=== PATIENT | male | born 1980 | race American Indian/Alaskan Native ===

== ENCOUNTER 2016-05-21 08:04 | Emergency (ER) | payer MEDICARE ==
[2016-05-21 12:14] VITALS: BP 142/91
[2016-05-21 12:31] LABS: Bacteria,Urine 1+ /HPF (Negative); Bilirubin,Urine NEG (Negative); Blood,Urine SM (Negative); Ketones,Urine NEG (Negative); Leukocyte Esterase,Urine NEG (Negative); Mucus,Urine FEW /HPF; Nitrite,Urine NEG (Negative); Urobilinogen,Urine < 2.0 mg/dL (<2.0)
[2016-05-21 12:34] LABS: Basophils % (Auto) 0.4 % (0.0-1.8); Hematocrit 39.9 % (35.5-45.6); Hemoglobin 13.3 gm/dl (11.8-15.2); Mean Corpuscular HGB Conc 34 % (32-34); Mean Corpuscular Hemoglobin 28 pg (28-32); Mean Corpuscular Volume 85 fl (84-94); Platelet Count 296 K/mm3 (140-440); Red Blood Count 4.71 M/mm3 (3.65-5.03); White Blood Count 5.5 K/mm3 (4.5-11.0)
[2016-05-21] MEDS ORDERED: NORCO 7.5/325 ONE (12:36)
[2016-05-21] MEDS ORDERED: NORCO 7.5/325 PO ONE (12:38)
[2016-05-21 12:58] LABS: Anion Gap 18 mmol/L; Blood Urea Nitrogen 9 mg/dL (9-20); Calcium 9.2 mg/dL (8.4-10.2); Carbon Dioxide 25 mmol/L (22-30); Chloride 100.7 mmol/L (98-107); Creatine Kinase 92 units/L (55-170); Glucose 103 mg/dL (75-100); Potassium 3.9 mmol/L (3.6-5.0); Sodium 140 mmol/L (137-145)
--- NOTE | 2016-05-21 14:38 | XRay Report ---
LEFT FOOT, 2 views: History: Left foot pain and swelling. The bony architecture is intact. Bony alignment is normal. No soft tissue abnormalities are seen. The joint spaces appear preserved. IMPRESSION: Unremarkable left foot.
--- NOTE | 2016-05-21 15:13 | Emergency Department Report ---
Entered by BLANCHE TALBOT, acting as scribe for BENITA CARL PA. ED Extremity Problem HPI - General Chief complaint: Extremity Problem,Nontraumatic Stated complaint: LEFT FOOT PAIN Time Seen by Provider: 05/21/16 12:00 Source: patient Mode of arrival: Wheelchair Limitations: No Limitations - History of Present Illness Initial comments: 36 y/o male with PMHx of recurrent rhabdomyolysis and HTN, presents to the ED c/ o left dorsal foot pain beginning 2 days ago. He states he woke up 2 days ago with the symptoms, and the symptoms worsened after waking up yesterday morning. The left foot pain is described as constant, deep, and throbbing in quality, 9/ 10 severity, and worse in the morning. Associated symptoms of mild swelling of the left foot and dark urine, but the patient denies body aches (that are similar to Hx of rhabdomyolysis symptoms), fever, nausea, vomiting, SOB, chest pain, hematuria, abdominal pain, numbness, headache, and weakness. Patient denies acute trauma, injury, or twisting of the extremity. Noted the patient forgot to take his HTN medication (metoprolol) this morning. MD Complaint: extremity pain (left dorsal foot) -: days(s) (2 days ago, became worse yesterday morning) Location: left (dorsal foot) History of Same: No -: No myalgia, No arthralgia, No fever, No associated dyspnea, No associated chest pain Radiation: none Severity scale (0 -10): 9 Quality: constant, other (throbbing and deep) Consistency: constant Improves with: nothing Worsens with: weight bearing, palpation, other (movement) Associated Symptoms: other (mild swelling of the left foot, mildly dark urine, but denies body aches that are consistent with his rhabdomyolysis). denies: chest pain, shortness of breath, fever, myalgias, arthralgias, rash - Related Data Home Medications Medication Instructions Recorded Confirmed Last Taken oxyCODONE ER (NF) [OxyCONTIN ER 40 mg PO Q12HR 10/24/14 10/24/14 10/23/14 TAB] Previous Rx's Medication Instructions Recorded Last Taken Type Famotidine [Pepcid] 20 mg PO BID #60 tablet 11/04/14 Unknown Rx Lisinopril [Zestril TAB] 10 mg PO QDAY #30 tablet 11/04/14 Unknown Rx oxyCODONE ER [OxyCONTIN ER TAB] 40 mg PO Q12HR #10 tablet 11/04/14 Unknown Rx Ibuprofen [Motrin 800 MG tab] 800 mg PO Q8HR PRN #30 tablet 05/21/16 Unknown Rx Allergies Allergy/AdvReac Type Severity Reaction Status Date / Time No Known Allergies Allergy Verified 10/25/14 00:39 ED Review of Systems Comment: All other systems reviewed and negative Constitutional: denies: chills, fever, other (body aches consistent with rhabdomyolysis) Respiratory: denies: cough, shortness of breath Cardiovascular: denies: chest pain Gastrointestinal: denies: abdominal pain, nausea, vomiting Genitourinary: other (dark colored urine) Musculoskeletal: other (left dorsal foot pain) Skin: other (mild swelling of the left foot). denies: rash Neurological: denies: headache, weakness, numbness ED Past Medical Hx - Past Medical History Hx Hypertension: Yes Additional medical history: Recurrent rhabdomyolysis. Cocaine abuse - Surgical History Additional Surgical History: muscle biopsy - Social History Smoking Status: Current Every Day Smoker Substance Use Type: Alcohol, Marijuana - Medications Home Medications: Home Medications Medication Instructions Recorded Confirmed Last Taken Type oxyCODONE ER (NF) [OxyCONTIN ER 40 mg PO Q12HR 10/24/14 10/24/14 10/23/14 History TAB] Famotidine [Pepcid] 20 mg PO BID #60 tablet 11/04/14 Unknown Rx Lisinopril [Zestril TAB] 10 mg PO QDAY #30 tablet 11/04/14 Unknown Rx oxyCODONE ER [OxyCONTIN ER TAB] 40 mg PO Q12HR #10 tablet 11/04/14 Unknown Rx Ibuprofen [Motrin 800 MG tab] 800 mg PO Q8HR PRN #30 tablet 05/21/16 Unknown Rx ED Physical Exam - General Limitations: No Limitations - Other Other exam information: GENERAL: Patient is alert and oriented x 3. No apparent distress, normal gait, atraumatic. HEAD: Head is normocephalic and atraumatic. EYES: Extraocular movements are intact. Pupils are equal, round, and reactive to light and accommodation. EARS: Symmetrical, atraumatic, non tender, ear canal clear with moderate cerumen , tympanic membrane non inflamed. Gross auditory nml bilaterally. NOSE: Nose symmetrical, nontender. Nares appeared normal. MOUTH:Mouth is well hydrated and without lesions. Mucous membranes are moist. Uvula midline. Tongue not elevated. Posterior pharynx clear, no exudate or lesions. Tonsils are not erythematous or swollen. Patent airway. NECK: Supple. Non edematous, no carotid bruits. No lymphadenopathy or thyromegaly. LUNGS: Symmetrical with respiration. No wheezing, rales or crackles, CTAB. HEART: Regular rate and rhythm with normal S1/S2 present. No murmurs, rubs, or gallops. ABDOMEN: Soft, nondistended. Nontender to palpation on all quadrants. No organomegaly was noted. Positive bowel sounds. No CVA tenderness. EXTREMITIES/MUSCULOSKELETAL: No cyanosis, clubbing, rash, or lesions. Full ROM bilaterally. UE/LE Pulses 2+ bilaterally. LE and UE 5+ strength bilaterally. Tender over the dorsal left foot, with some mild swelling of the left foot just distal of the left ankle (more over the dorsal side) SKIN: Warm and dry. No lesions, ulceration or induration present. No change in temperature over the left foot. NEUROLOGIC: No focal deficit., ED Course Vital Signs 05/21/16 05/21/16 08:34 11:50 Temperature 99.2 F 98.1 F Pulse Rate 95 H 92 H Respiratory 20 18 Rate Blood Pressure 154/108 Blood Pressure 142/91 [Right] O2 Sat by Pulse 99 98 Oximetry ED Medical Decision Making - Lab Data Result diagrams: 05/21/16 12:25 05/21/16 12:25 - Radiology Data Radiology results: report reviewed, image reviewed interpreted by me: Dorsum bone spur unremarkable exam - Medical Decision Making Patient was evaluated by the provider in fast track. 36 y/o male with Hx of recurrent rhabdomyolysis and HTN, presents to the ED c/o dorsal left foot pain beginning 2 days ago. Patient denies any acute trauma, injury, or twisting of the affected extremity. The patient's left foot x-ray shows Discussed with the patient to follow up with a PCP as referred, and to return to the ED if his symptoms worsen or return, or if he experiences any SOB or chest pain. Patient states understanding and will follow instructions. Vital signs stable, patient is in no acute distress. ED Disposition Clinical Impression: Bone spur of left foot Disposition: DISCHARGED TO HOME OR SELFCARE Is pt being admited?: No Does the pt Need Aspirin: No Condition: Stable Additional Instructions: take medication as prescribed. Follow up with your PCP. Prescriptions: Ibuprofen [Motrin 800 MG tab] 800 mg PO Q8HR PRN #30 tablet PRN Reason: Pain Referrals: PRIMARY CARE,MD [Primary Care Provider] - 3-5 Days FAREED CLARK DPM [Staff Physician] - 3-5 Days Forms: Work/School Release Form(ED) This documentation as recorded by the ANTIONE morton GRACE,accurately reflects the service I personally performed and the decisions made by me,BENITA CARL, PA.
== END 2016-05-21 15:15 | disposition home or self-care (01) ==
LOC: ED 08:04
DX: M77.52 Other enthesopathy of left foot and ankle (principal); I10 Essential (primary) hypertension; F17.200 Nicotine dependence, unspecified, uncomplicated; F12.10 Cannabis abuse, uncomplicated; F14.10 Cocaine abuse, uncomplicated
CPT/HCPCS: 36415; 80048; 81001; 82550; 85025